=== PATIENT | female | born 1935 | race Caucasian/White ===

== ENCOUNTER 2017-05-24 12:38 | Outpatient (CLI) | payer MEDICARE ==
--- NOTE | 2017-05-24 14:13 | MMO ---
BILATERAL MAMMOGRAMS: HISTORY: Screening mammography. COMPARISON: 02/11/14, 02/12/15, and 03/23/16. FINDINGS: Scattered fibroglandular densities and benign-appearing calcifications are again demonstrated. There is no dominant mass or suspicious calcifications. The study was evaluated with the assistance of co soniuter-aided detection. IMPRESSION: BI-RADS category 1. Negative. Suggest routine followup. BIRADS 1: Negative Routine annual screening mammography (for women over age 40) POS: JOSE ANTONIO
== END 2017-05-24 12:39 | disposition home or self-care (01) ==
LOC: SCSMAMMO 12:38
PROVIDERS: ATTEND Family Medicine
DX: Z12.31 Encounter for screening mammogram for malignant neoplasm of breast (principal)
CPT/HCPCS: 77067

== ENCOUNTER 2018-06-01 10:37 | Outpatient (CLI) | payer MEDICARE ==
--- NOTE | 2018-06-05 13:25 | MMO ---
Bilateral MAMMO Bilat Screen [facility]. CLINICAL HISTORY: Patient is 82 years old and is seen for screening. The patient has no family history of breast cancer. The patient has no personal history of cancer. The patient has a history of left Lumpectomy in 2003 - benign. VIEWS: The views performed were: bilateral craniocaudal and bilateral mediolateral oblique. FILMS COMPARED: The present examination has been compared to prior imaging studies performed at [facility] on 02/12/2015, 03/23/2016 and 05/24/2017. This study has been interpreted with the assistance of computer-aided detection. MAMMOGRAM FINDINGS: There are scattered fibroglandular densities. There are stable benign appearing calcifications seen in both breasts. There are also vascular calcifications. There are no suspicious masses, suspicious calcifications, or new areas of architectural distortion. IMPRESSION: THERE IS NO MAMMOGRAPHIC EVIDENCE OF MALIGNANCY. A ROUTINE FOLLOW-UP MAMMOGRAM IN 1 YEAR IS RECOMMENDED. ACR BI-RADS Category 2 - Benign finding MAMMOGRAPHY NOTE: 1. A negative mammogram report should not delay a biopsy if a dominant of clinically suspicious mass is present. 2. Approximately 10% to 15% of breast cancers are not detected by mammography. 3. Adenosis and dense breasts may obscure an underlying neoplasm.
== END 2018-06-01 10:38 | disposition home or self-care (01) ==
LOC: SCSMAMMO 10:37
PROVIDERS: ATTEND Family Medicine
DX: Z12.31 Encounter for screening mammogram for malignant neoplasm of breast (principal)
CPT/HCPCS: 77067